=== PATIENT | female | born 1990 | race Caucasian/White ===

== ENCOUNTER 2023-08-02 14:44 | Emergency (ER) | payer BC, MEDICAID ==
[~2023-08-02] VITALS: Ht 165.1 cm; Wt 109.5 kg
[2023-08-02 15:02] VITALS: BP 137/93; PULSE 116; RESP 18; O2SAT 96
[2023-08-02 15:35] LABS: Basophils # (auto) 0 10 ^3/uL (0-0.2); Basophils % (auto) 0.4 % (0.0-2.0); Eosinophils # (auto) 0.1 10 ^3/uL (0-0.8); Eosinophils % (auto) 1.4 % (0.0-7.0); Hematocrit 43.4 % (36.0-46.0); Hemoglobin 14.4 g/dL (12.2-16.2); Lymphocytes # (auto) 2.4 10 ^3/uL (0.4-5.4); Lymphocytes % (auto) 26.3 % (10.0-50.0); Mean Corpuscular Hemoglobin 28.1 pg (28.0-32.0); Mean Corpuscular Hgb Conc. 33.2 g/dL (32.0-36.0); Mean Corpuscular Volume 84.6 fL (80.0-100.0); Monocytes # (auto) 0.5 10 ^3/uL (0-1.3); Monocytes % (auto) 5.2 % (0.0-12.0); Neutrophils % (auto) 66.7 % (37.0-80.0); Red Blood Cells 5.13 10^6/uL (4.0-5.20); Red Cell Distribution Width 14.1 % (11.8-14.3)
[2023-08-02 15:50] LABS: Alanine Aminotransferase 21 U/L (7-40); Albumin 4.7 g/dL (3.2-4.8); Alkaline Phosphatase 105 U/L (46-116); Anion Gap 8 (5-15); Aspartate Aminotransferase 22 U/L (13-40); Carbon Dioxide 26 mmol/L (20-30); Chloride 104 mmol/L (98-107); Glucose 91 mg/dL (74-106); Potassium 3.9 mmol/L (3.5-5.1); Sodium 138 mmol/L (136-145)
[2023-08-02 15:51] LABS: Bilirubin, Total 0.7 mg/dL (0.2-1.0); Total Protein 7.3 g/dL (5.7-8.2)
[2023-08-02 15:53] LABS: BUN/Creatinine Ratio 6.7 (10.0-20.0); Blood Urea Nitrogen < 5 mg/dL (9-23)
[2023-08-02 17:15] LABS: Urine Bacteria NONE SEEN /hpf (None Seen); Urine Blood 3+ /uL (Negative); Urine Clarity HAZY (Clear); Urine Color Yellow (Yellow); Urine Mucus FEW (None Seen); Urine Protein, UAD 1+ (Negative); Urine Specific Gravity 1.031 (1.001-1.035); Urine Urobilinogen Normal (Negative); Urine WBC 3 /hpf (0 - 5); Urine pH 5.5 (5.0-8.0)
[2023-08-02] MEDS ORDERED: RHO (D) IMMUNE GLOBULIN 300 MCG INJ IM ONE (19:00)
== END 2023-08-02 21:59 | disposition left against medical advice (07) ==
LOC: ER 14:44
DX: O20.9 Hemorrhage in early pregnancy, unspecified (principal); R10.2 Pelvic and perineal pain; Z3A.01 Less than 8 weeks gestation of pregnancy
CPT/HCPCS: 36415; 76801; 76817; 80053; 81001; 81025; 84702; 85025; 86850; 86900; 86901

== ENCOUNTER → 2023-10-10 | Outpatient (CLI) | payer BC, MEDICAID ==
[2023-10-10 12:43] LABS: Basophils # (auto) 0 10 ^3/uL (0-0.2); Basophils % (auto) 0.5 % (0.0-2.0); Eosinophils # (auto) 0.3 10 ^3/uL (0-0.8); Eosinophils % (auto) 3.9 % (0.0-7.0); Hematocrit 40.8 % (36.0-46.0); Hemoglobin 13.7 g/dL (12.2-16.2); Lymphocytes # (auto) 2.2 10 ^3/uL (0.4-5.4); Lymphocytes % (auto) 30.4 % (10.0-50.0); Mean Corpuscular Hemoglobin 27.9 pg (28.0-32.0); Mean Corpuscular Hgb Conc. 33.6 g/dL (32.0-36.0); Mean Corpuscular Volume 83.1 fL (80.0-100.0); Monocytes # (auto) 0.3 10 ^3/uL (0-1.3); Monocytes % (auto) 4.5 % (0.0-12.0); Neutrophils # (auto) 4.5 10 ^3/uL (1.6-8.6); Neutrophils % (auto) 60.7 % (37.0-80.0); Nucleated Red Blood Cells % 0.1 %; Red Blood Cells 4.91 10^6/uL (4.0-5.20); Red Cell Distribution Width 13.5 % (11.8-14.3); White Blood Cell 7.4 10^3/uL (4.4-10.8)
[2023-10-10 12:59] LABS: Urine Bacteria FEW /hpf (None Seen); Urine Blood 1+ /uL (Negative); Urine Clarity Clear (Clear); Urine Color Yellow (Yellow); Urine Mucus FEW (None Seen); Urine Protein, UAD TRACE (Negative); Urine Specific Gravity 1.031 (1.001-1.035); Urine Urobilinogen Normal (Negative); Urine WBC 1 /hpf (0 - 5); Urine pH 5.5 (5.0-9.0)
[2023-10-10 13:12] LABS: Erythrocyte Sedimentation Rate 11 mm/hr (0-20)
[2023-10-10 14:02] LABS: Alanine Aminotransferase 15 U/L (7-40); Albumin 4.4 g/dL (3.2-4.8); Alkaline Phosphatase 91 U/L (46-116); Anion Gap 6 (5-15); Aspartate Aminotransferase 13 U/L (13-40); BUN/Creatinine Ratio 9.7 (10.0-20.0); Blood Urea Nitrogen 7 mg/dL (9-23); Carbon Dioxide 26 mmol/L (20-30); Chloride 107 mmol/L (98-107); Glucose 84 mg/dL (74-106); LDL Cholesterol 123 mg/dL (< 100); Potassium 3.9 mmol/L (3.5-5.1); Sodium 139 mmol/L (136-145); Triglycerides 96 mg/dL (< 150)
[2023-10-10 14:03] LABS: Bilirubin, Total 0.5 mg/dL (0.2-1.0); Cholesterol 195 mg/dL (< 200); HDL Cholesterol 59 mg/dL (40-59); Total Protein 7.5 g/dL (5.7-8.2)
== END | disposition home or self-care (01) ==
LOC: LAB 12:26
PROVIDERS: ATTEND Internal Medicine
DX: R53.83 Other fatigue (principal); R63.5 Abnormal weight gain; L65.9 Nonscarring hair loss, unspecified
CPT/HCPCS: 36415; 80053; 80061; 81001; 82626; 84439; 84443; 85025; 85045; 85652

== ENCOUNTER 2024-09-18 06:42 | Inpatient (IN) | payer BC, MEDICAID ==
[~2024-09-18] VITALS: Ht 165.1 cm; Wt 119.3 kg
--- NOTE | 2024-09-18 07:09 | ED.PDOC ---
History of Present Illness HPI Comments This is a 34-year-old female who comes in with chief complaint of possible foreign body in his esophagus. The patient was eating some granola last night and then felt like something got stuck in her throat at 10:00 p.m.. The patient woke up in his now stating that she can not swallow any food but can drink some liquids. She denies any vomiting or diarrhea. The patient also denies any shortness for breath. She has has a history of esophageal foreign bodies in the past and has had esophageal dilatation as well as foreign body removal x4. She states that she has had procedures done at [facility] as well as [place]. Upon arrival, the patient does not seem to be in any significant distress. Chief Complaint: Foreign Body Time Seen by MD: 06:56 Primary Care Provider: NONE Reviewed Notes: Nurses Notes, Medications, Allergies (No allergies) Allergies: Coded Allergies: No Known Drug Allergy (Verified Allergy, Unknown, 08/02/23) Information Source: Patient Mode of Arrival: Ambulatory Severity: Moderate Timing: Hours Duration: Since onset Prehospital treatment: None Location: Esophageal foreign body Past Medical History Past Medical History (Other): Esophageal stricture Surgical History (Other): Esophageal dilatation GAMING DEPARTMENT HEAD History: No Pertinent GAMING DEPARTMENT HEAD History Family History Family History: Reviewed,noncontributory to illness, No family hx of Cancer, No family hx of DM, No family hx of Heart belle, No family hx of HTN, No family hx ofKidney belle, No family hx of Liver belle, No family hx of Lung belle, No family hx of Stroke Social History Smoker: Non-Smoker Alcohol: Denies ETOH Use Drugs: Denies Drug Use Lives In: Home Constitutional: denies: chills, diaphoresis, fatigue, fever, malaise, sweats, weakness, others EENTM: reports: others (Esophageal foreign body with difficulty swallowing); denies: blurred vision, double vision, ear bleeding, ear discharge, ear drainage, ear pain, ear ringing, eye pain, eye redness, hearing loss, mouth pain, mouth swelling, nasal discharge, nose bleeding, nose congestion, nose pain, photophobia, tearing, throat pain, throat swelling, voice changes Respiratory: denies: cough, hemoptysis, orthopnea, SOB at rest, shortness of breath, SOB with excertion, stridor, wheezing, others Cardiovascular: denies: chest pain, dizzy spells, diaphoresis, Dyspnea on exertion, edema, irregular heart beat, left arm pain, lightheadedness, palpitations, PND, syncope, others Gastrointestinal: reports: dysphagia; denies: abdomen distended, abdominal pain , blood streaked bowels, constipated, diarrhea, difficulty swallowing, hematemesis, melena, nausea, poor appetite, poor fluid intake, rectal bleeding, rectal pain, vomiting, others Genitourinary: denies: abnormal vagina bleeding, burning, dyspareunia, dysuria, flank pain, frequency, hematuria, incontinence, pain, , vagina discharge, urgency, others Neurological: denies: dizziness, fainting, headache, left sided numbness, left sided weakness, numbness, paresthesia, pre-existing deficit, right sided numbness, right sided weakness, seizure, speech problems, tingling, tremors, weakness, others Musculoskeletal: denies: back pain, gout, joint pain, joint swelling, muscle pain, muscle stiffness, neck pain, others Integumetry: denies: bruises, change in color, change in hair/nails, dryness, laceration, lesions, lumps, rash, wounds, others Allergic/Immunocompromised: denies: Difficulty Healing, Frequent Infections, Hives, Itching, others Hematologic/Lymphatic: denies: anemia, blood clots, easy bleeding, easy bruising, swollen glands, others Endocrine: denies: excessive hunger, excessive sweating, excessive thirst, excessive urination, flushing, intolerance to cold, intolerance to heat, unexplained weight gain, unexplained weight loss, others Psychiatric: denies: anxiety, bipolar disorder, depression, hopeless, panic disorder, schizophrenia, sleepless, suicidal, others Physical Exam General Appearance: Mild Distress HEENT: Normal ENT Inspection, Pharynx Normal, TMs Normal Neck: Full Range of Motion, Non-Tender, Normal, Normal Inspection Respiratory: Chest Non-Tender, Lungs Clear, No Accessory Muscle Use, No Respiratory Distress, Normal Breath Sounds Cardiovascular: No Edema, No JVD, No Murmur, No Gallop, Normal Peripheral Pulses, Regular Rate/Rhythm Breast Exam: Deferred Gastrointestinal: No Organomegaly, Non Tender, No Pulsatile Mass, Normal Bowel Sounds, Soft Genitalia: Deferred Pelvic: Deferred Rectal: Deferred Extremities: No calf tenderness, Normal capillary refill, Normal inspection, Normal range of motion, Non-tender, No pedal edema Musculoskeletal : Apperance: Normal Neurologic: Alert, 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 Was a procedure done?: No Differential Dx Considerations may include: Esophageal foreign body, generalized weakness X-Ray, Labs, Meds, VS Vital Signs Date Time Temp Pulse Resp B/P (MAP) Pulse Ox O2 Delivery O2 Flow Rate FiO2 09/18/24 08:07 97.8 102 16 142/107 (119) 97 97.8 09/18/24 08:07 102 16 97 Room Air 09/18/24 06:50 97.8 102 16 142/107 (119) 97 97.8 Lab Test 09/18/24 07:10 Range/Units White Blood Count 11.3 H 4.4-10.8 10^3/uL Red Blood Count 5.18 4.0-5.20 10^6/uL Hemoglobin 14.5 12.2-16.2 g/dL Hematocrit 42.9 36.0-46.0 % Mean Corpuscular Volume 82.9 80.0-100.0 fL Mean Corpuscular Hemoglobin 28.1 28.0-32.0 pg Mean Corpuscular Hemoglobin Concent 33.9 32.0-36.0 g/dL Red Cell Distribution Width 14.2 11.8-14.3 % Platelet Count 352 140-450 10^3/uL Mean Platelet Volume 7.0 6.9-10.8 fL Neutrophils (%) (Auto) 72.4 37.0-80.0 % Lymphocytes (%) (Auto) 19.8 10.0-50.0 % Monocytes (%) (Auto) 5.5 0.0-12.0 % Eosinophils (%) (Auto) 1.7 0.0-7.0 % Basophils (%) (Auto) 0.6 0.0-2.0 % Neutrophils # (Auto) 8.2 1.6-8.6 10 ^3/uL Lymphocytes # (Auto) 2.2 0.4-5.4 10 ^3/uL Monocytes # (Auto) 0.6 0-1.3 10 ^3/uL Eosinophils # (Auto) 0.2 0-0.8 10 ^3/uL Basophils # (Auto) 0.1 0-0.2 10 ^3/uL Nucleated Red Blood Cells 0.1 % Prothrombin Time 10.6 9.3-11.8 sec Prothrombin Time INR 1.00 0.9-1.15 Activated Partial Thromboplast Time 27.0 24.5-34.5 SEC Sodium Level 136 136-145 mmol/L Potassium Level 3.8 3.5-5.1 mmol/L Chloride Level 104 98-107 mmol/L Carbon Dioxide Level 22 20-31 mmol/L Anion Gap 10 5-15 Blood Urea Nitrogen 7 L 9-23 mg/dL Creatinine 0.79 0.550-1.02 mg/dL Glomerular Filtration Rate Calc 102 >90 mL/min BUN/Creatinine Ratio 8.9 L 10.0-20.0 Serum Glucose 95 74-106 mg/dL Calcium Level 9.8 8.7-10.4 mg/dL Total Bilirubin 0.5 0.2-1.0 mg/dL Aspartate Amino Transferase (AST) 19 13-40 U/L Alanine Aminotransferase (ALT) 25 7-40 U/L Alkaline Phosphatase 97 46-116 U/L Total Protein 7.7 5.7-8.2 g/dL Albumin 4.7 3.2-4.8 g/dL Current Medications Medications (Trade) Dose Ordered Sig/Carole Route Start Time Stop Time Status Last Admin Pantoprazole Sodium (Protonix) 40 mg ONCE ONCE IV 09/18/24 07:15 09/18/24 07:16 DC 09/18/24 07:42 IV Hep-Lock has been established We called Dr. Hawkins who is the GI on-call and she will be taking the patient for the procedure at noon today. The patient was to remain NPO We have discussed the findings with the patient and she is in agreement with the management. At this time we will continue to monitor the patient's medical status Time of 1ST Reevaluation: 07:22 Reevaluation 1ST: Unchanged Patient Education/Counseling: Diagnosis, Treatment, Prognosis Family Education/Counseling: No Family Present Departure 1 Departure Time of Disposition: 07:23 Impression: Primary Impression: Esophageal foreign body Qualified Codes: T18.108A - Unspecified foreign body in esophagus causing other injury, initial encounter Disposition: 30 STILL A PATIENT Condition: Fair Critical Care Note Critical Care Time?: No Stability Stability form required: Yes Unstable for transfer: ED Physician Assesment (Clinical assesment) Heart Score Heart Score: Heart Score Response (Comments) Value History N/A 0 EKG N/A 0 Age N/A 0 Risk Factors N/A 0 Troponin N/A 0 Total 0 LISA VOSS MD Sep 18, 2024 07:09
[2024-09-18 07:19] LABS: Basophils # (auto) 0.1 10 ^3/uL (0-0.2); Basophils % (auto) 0.6 % (0.0-2.0); Eosinophils # (auto) 0.2 10 ^3/uL (0-0.8); Eosinophils % (auto) 1.7 % (0.0-7.0); Hematocrit 42.9 % (36.0-46.0); Hemoglobin 14.5 g/dL (12.2-16.2); Lymphocytes # (auto) 2.2 10 ^3/uL (0.4-5.4); Lymphocytes % (auto) 19.8 % (10.0-50.0); Mean Corpuscular Hemoglobin 28.1 pg (28.0-32.0); Mean Corpuscular Hgb Conc. 33.9 g/dL (32.0-36.0); Mean Corpuscular Volume 82.9 fL (80.0-100.0); Monocytes # (auto) 0.6 10 ^3/uL (0-1.3); Monocytes % (auto) 5.5 % (0.0-12.0); Neutrophils # (auto) 8.2 10 ^3/uL (1.6-8.6); Neutrophils % (auto) 72.4 % (37.0-80.0); Nucleated Red Blood Cells % 0.1 %; Platelet Count (auto) 352 10^3/uL (140-450); Red Blood Cells 5.18 10^6/uL (4.0-5.20); Red Cell Distribution Width 14.2 % (11.8-14.3); White Blood Cell 11.3 10^3/uL (4.4-10.8)
[2024-09-18 07:35] LABS: Alanine Aminotransferase 25 U/L (7-40); Albumin 4.7 g/dL (3.2-4.8); Alkaline Phosphatase 97 U/L (46-116); Anion Gap 10 (5-15); Aspartate Aminotransferase 19 U/L (13-40); BUN/Creatinine Ratio 8.9 (10.0-20.0); Bilirubin, Total 0.5 mg/dL (0.2-1.0); Blood Urea Nitrogen 7 mg/dL (9-23); Calcium 9.8 mg/dL (8.7-10.4); Carbon Dioxide 22 mmol/L (20-31); Chloride 104 mmol/L (98-107); Glucose 95 mg/dL (74-106); Potassium 3.8 mmol/L (3.5-5.1); Sodium 136 mmol/L (136-145); Total Protein 7.7 g/dL (5.7-8.2)
[2024-09-18 07:37] LABS: Prothrombin Time 10.6 sec (9.3-11.8)
--- NOTE | 2024-09-18 07:39 | DVH ---
XY CHEST TWO VIEWS ROUTINE CLINICAL HISTORY: pre op COMPARISON: None TECHNIQUE: Frontal and lateral view of the chest was obtained FINDINGS: Lines and Tubes: None Lungs: No focal consolidation. Pleura: No effusion. No pneumothorax. Cardiomediastinal contours: Unremarkable Bones: No acute osseous abnormality. IMPRESSION: 1. No acute cardiopulmonary disease.
[2024-09-18] MEDS: PANTOPRAZOLE 40 MG/10 ML VIAL INJ IV ONE ×2 (07:42→15:03)
[2024-09-18] MEDS ORDERED: fentaNYL CITRATE 100 MCG/2 ML VL ONE (10:39)
[2024-09-18] MEDS ORDERED: PROPOFOL 10 MG/ML 20 ML IV ONE ×2 (10:39→12:51)
[2024-09-18 13:04] VITALS: PULSE 105; RESP 99; O2SAT 99
--- NOTE | 2024-09-18 14:17 | DVHINCON2 ---
Date of service: Sep 18, 2024 (Time of consult 11:00 a.m.) Referring Physician Dale Valenzuela Reason for Consultation Foreign body in esophagus History of Present Illness This is a 34-year-old female who comes in with chief complaint of possible foreign body in his esophagus. The patient was eating some granola last night and then felt like something got stuck in her throat at 10:00 p.m.. The patient woke up in his now stating that she can not swallow any food but can drink some liquids. She denies any vomiting or diarrhea. The patient also denies any shortness for breath. She has has a history of esophageal foreign bodies in the past and has had esophageal dilatation as well as foreign body removal x4. She states that she has had procedures done at [facility] as well as [place]. Patient states last EGD was by the gastro group at [facility]. Her biopsies were not consistent with the eosinophilic esophagitis and she has tried the elimination diet which does not help. Patient takes Pepcid 40 mg p.o. daily. Patient has a toddler at home Past Medical History Past Medical History Esophageal stricture Chronic GERD Past Surgical History EGD with dilation Allergies: Coded Allergies: No Known Drug Allergy (Verified Allergy, Unknown, 08/02/23) Vital Signs Vital Signs Date Time Temp Pulse Resp B/P (MAP) Pulse Ox O2 Delivery O2 Flow Rate FiO2 09/18/24 13:04 Room Air 0 09/18/24 13:04 105 99 99 09/18/24 08:07 97.8 142/107 (119) 97.8 Physical Exam General Appearance: Well-developed well-nourished lady no acute distress HEENT: Normal ENT Inspection, Pharynx Normal, TMs Normal Neck: Full Range of Motion, Non-Tender, Normal, Normal Inspection Respiratory: Chest Non-Tender, Lungs Clear, No Accessory Muscle Use, No Respiratory Distress, Normal Breath Sounds Cardiovascular: No Edema, No JVD, No Murmur, No Gallop, Normal Peripheral Pulses, Regular Rate/Rhythm Gastrointestinal: No Organomegaly, Non Tender, No Pulsatile Mass, Normal Bowel Sounds, Soft Extremities: No calf tenderness, Normal capillary refill, Normal inspection, Normal range of motion, Non-tender, No pedal edema Neurologic: Alert, senior it security analyst II-XII nml as Tested, No Motor Deficits, Normal Affect, Normal Mood, No Sensory Deficits Labs/Diagnostic Data Labs Test 09/18/24 07:10 Range/Units White Blood Count 11.3 H 4.4-10.8 10^3/uL Red Blood Count 5.18 4.0-5.20 10^6/uL Hemoglobin 14.5 12.2-16.2 g/dL Hematocrit 42.9 36.0-46.0 % Mean Corpuscular Volume 82.9 80.0-100.0 fL Mean Corpuscular Hemoglobin 28.1 28.0-32.0 pg Mean Corpuscular Hemoglobin Concent 33.9 32.0-36.0 g/dL Red Cell Distribution Width 14.2 11.8-14.3 % Platelet Count 352 140-450 10^3/uL Mean Platelet Volume 7.0 6.9-10.8 fL Neutrophils (%) (Auto) 72.4 37.0-80.0 % Lymphocytes (%) (Auto) 19.8 10.0-50.0 % Monocytes (%) (Auto) 5.5 0.0-12.0 % Eosinophils (%) (Auto) 1.7 0.0-7.0 % Basophils (%) (Auto) 0.6 0.0-2.0 % Neutrophils # (Auto) 8.2 1.6-8.6 10 ^3/uL Lymphocytes # (Auto) 2.2 0.4-5.4 10 ^3/uL Monocytes # (Auto) 0.6 0-1.3 10 ^3/uL Eosinophils # (Auto) 0.2 0-0.8 10 ^3/uL Basophils # (Auto) 0.1 0-0.2 10 ^3/uL Nucleated Red Blood Cells 0.1 % Prothrombin Time 10.6 9.3-11.8 sec Prothrombin Time INR 1.00 0.9-1.15 Activated Partial Thromboplast Time 27.0 24.5-34.5 SEC Sodium Level 136 136-145 mmol/L Potassium Level 3.8 3.5-5.1 mmol/L Chloride Level 104 98-107 mmol/L Carbon Dioxide Level 22 20-31 mmol/L Anion Gap 10 5-15 Blood Urea Nitrogen 7 L 9-23 mg/dL Creatinine 0.79 0.550-1.02 mg/dL Glomerular Filtration Rate Calc 102 >90 mL/min BUN/Creatinine Ratio 8.9 L 10.0-20.0 Serum Glucose 95 74-106 mg/dL Calcium Level 9.8 8.7-10.4 mg/dL Total Bilirubin 0.5 0.2-1.0 mg/dL Aspartate Amino Transferase (AST) 19 13-40 U/L Alanine Aminotransferase (ALT) 25 7-40 U/L Alkaline Phosphatase 97 46-116 U/L Total Protein 7.7 5.7-8.2 g/dL Albumin 4.7 3.2-4.8 g/dL Beta HCG, Quantitative 0.7 L 1.5-4.2 mIU/mL Chest x-ray negative Problems(with codes): (1) Esophageal stricture (2) Esophagitis (3) Hiatal hernia (4) Esophageal foreign body Plan/Recommendation Plan Patient will be kept NPO Give her IV Protonix 40 mg x 1 dose Schedule upper endoscopy with possible biopsy possible dilation possible removal of foreign body Risks of procedure including bleeding and perforation risk of consideration could OK stroke were discussed with the patient She appeared to comprehend concerned with the procedure and the patient has had this procedure multiple times in the past Plan discussed with: Patient, Other ( Ortiz and DR Valenzuela) JACKLYN GREEN MD Sep 18, 2024 14:17
--- NOTE | 2024-09-18 14:24 | DVHOP2 ---
Operative Report DATE OF OPERATION: 09/18/24 PROCEDURE: Upper Endoscopy with biopsy. PREOPERATIVE INDICATION: The patient is a 34 -year-old female undergoing endoscopy for foreign body in esophagus chronic GERD and history of esophageal stricture POSTOPERATIVE DIAGNOSES: 1. Patient had a tight proximal to mid esophageal stricture beyond which the endoscope could not be advanced, this was dilated with a Microvasive balloon from 8-9 mm 2. I was then able to advance the endoscope into the distal esophagus where there was also some narrowing and a stricture and a foreign body i.e a piece of corn like material was seen 3. This area was also dilated with a Microvasive radial expansion balloon from 8-9 mm and subsequently I was able to advance the endoscope and the foreign body into the stomach 4. Patient has a 4-5 cm sliding-type hiatal hernia with esophageal ulceration suspected underlying Barretts esophagitis from which biopsies were obtained 5. Minimal oozing and mucosal separation seen in the proximal to mid esophagus 5. Otherwise normal examination up to the 2nd and 3rd part of the duodenum PROCEDURE PERFORMED BY: Jacklyn Hawkins GI NURSE: Michelle SCOPE: Olympus videoendoscope. ASA CLASS: 2. PREOPERATIVE MEDICATIONS: Mac sedationDr. Mireles PROCEDURE IN DETAIL: After obtaining an informed consent, the patient was placed on left lateral decubitus position. The patient was then sedated with the above medications. A bite block was placed between her teeth. The endoscope was then passed through the oropharynx, into the esophagus. There was a tight esophageal stricture in the proximal to mid esophagus I could not pass the endoscope beyond this area. This this was dilated with Microvasive radial expansion balloon from 8-9 mm Subsequently I was able to advance the endoscope into the distal esophagus. There was another area of esophageal stricture and narrowing beyond which the endoscope could not be passed This was dilated again with Microvasive radial expansion balloon from 8-9 mm. There was a foreign body namely a piece of large colon that was seen in the distal esophagus. This was gently pushed into the stomach. I was able to then pass the endoscope through the pylorus up to the 2nd and 3rd part of the duodenum The endoscope was then withdrawn the 2nd and 3rd part of the duodenal in the duodenal bulb were normal. Duodenal biopsies were obtained. The pre-pyloric area and antrum showed minimal gastritis. Gastric biopsies were obtained. On retroflexion the dislodged food particles were seen in the cardia and pr oximal stomach. The endoscope was then withdrawn into the esophagus. Patient had a 4-5 cm sliding-type hiatal hernia with [id number] esophageal ulcerations and suspected underlying Alcocer's esophagitis Esophageal biopsies were obtained. There was some area of mucosal separation and oozing in the proximal to mid esophagus at the site of forced dilation. The proximal esophagus and oropharynx were unremarkable. and pylorus up to the second and third part of the duodenum. The endoscope was then withdrawn. The patient tolerated the procedure well without difficulty. COMPLICATIONS : None SPECIMENS: Duodenal biopsies Gastric biopsies Esophageal biopsies DISPOSITION: Admit for observation Stable PLAN: 1. Await for biopsy result 2. Will place pt on Protonix 80 mg IV q.12 hours 3. I will get a Gastrografin upper GI x-ray to rule out any extravasation of the contrast 4. If the upper GI x-ray is negative we can start her on ice chips and then clear liquid diet 4. Carafate suspension 1 g p.o. 4 times a day 5. Patient has been advised to maintain herself on Prilosec 40 mg p.o. twice a day and Carafate 1 g p.o. twice a day upon discharge 6. Outpatient follow up with me in 4-6 weeks to review results and discuss further management 7. Discussed with patient and JACKLYN Guaman MD Sep 18, 2024 14:24
[2024-09-18] MEDS: cefTRIAXone 2GM/50ML D5W 50 ML IV ONE (15:03)
[2024-09-18] MEDS ORDERED: MORPHINE SULFATE INJ 2 MG/ml SYRG IV PRN (15:15)
[2024-09-18] MEDS ORDERED: NITROGLYCERIN 0.4 MG SL TAB SL PRN (15:15)
[2024-09-18] MEDS ORDERED: ACETAMINOPHEN IV 1000 MG/100ML (10MG/ML) IV ONE (15:30)
[2024-09-18 16:06] VITALS: PULSE 95; RESP 19; O2SAT 100
[2024-09-18] MEDS ORDERED: ONDANSETRON HCL 4 MG/2 ML VIAL IV PRN (16:15)
[2024-09-18 16:16] VITALS: BP 123/89; PULSE 95; RESP 19; TEMP 97.6; O2SAT 100
--- NOTE | 2024-09-18 16:20 | DVHHP2 ---
Review of Systems Allergies: Coded Allergies: No Known Drug Allergy (Verified Allergy, Unknown, 08/02/23) Medications Current Medications Medications Dose Ordered Sig/Carole Route Start Time Stop Time Status Last Admin Dose Admin Nitroglycerin 0.4 mg Q5MINP PRN SL 09/18/24 15:15 Morphine Sulfate 2 mg Q30M PRN IV 09/18/24 15:15 Ondansetron HCl 4 mg Q6HPRN PRN IV 09/18/24 16:15 Exam Vital Signs Vital Signs Date Time Temp Pulse Resp B/P (MAP) Pulse Ox O2 Delivery O2 Flow Rate FiO2 09/18/24 13:04 Room Air 0 09/18/24 13:04 105 99 99 09/18/24 08:07 97.8 142/107 (119) 97.8 Labs/Xrays Labs Test 09/18/24 07:10 Range/Units White Blood Count 11.3 H 4.4-10.8 10^3/uL Red Blood Count 5.18 4.0-5.20 10^6/uL Hemoglobin 14.5 12.2-16.2 g/dL Hematocrit 42.9 36.0-46.0 % Mean Corpuscular Volume 82.9 80.0-100.0 fL Mean Corpuscular Hemoglobin 28.1 28.0-32.0 pg Mean Corpuscular Hemoglobin Concent 33.9 32.0-36.0 g/dL Red Cell Distribution Width 14.2 11.8-14.3 % Platelet Count 352 140-450 10^3/uL Mean Platelet Volume 7.0 6.9-10.8 fL Neutrophils (%) (Auto) 72.4 37.0-80.0 % Lymphocytes (%) (Auto) 19.8 10.0-50.0 % Monocytes (%) (Auto) 5.5 0.0-12.0 % Eosinophils (%) (Auto) 1.7 0.0-7.0 % Basophils (%) (Auto) 0.6 0.0-2.0 % Neutrophils # (Auto) 8.2 1.6-8.6 10 ^3/uL Lymphocytes # (Auto) 2.2 0.4-5.4 10 ^3/uL Monocytes # (Auto) 0.6 0-1.3 10 ^3/uL Eosinophils # (Auto) 0.2 0-0.8 10 ^3/uL Basophils # (Auto) 0.1 0-0.2 10 ^3/uL Nucleated Red Blood Cells 0.1 % Prothrombin Time 10.6 9.3-11.8 sec Prothrombin Time INR 1.00 0.9-1.15 Activated Partial Thromboplast Time 27.0 24.5-34.5 SEC Sodium Level 136 136-145 mmol/L Potassium Level 3.8 3.5-5.1 mmol/L Chloride Level 104 98-107 mmol/L Carbon Dioxide Level 22 20-31 mmol/L Anion Gap 10 5-15 Blood Urea Nitrogen 7 L 9-23 mg/dL Creatinine 0.79 0.550-1.02 mg/dL Glomerular Filtration Rate Calc 102 >90 mL/min BUN/Creatinine Ratio 8.9 L 10.0-20.0 Serum Glucose 95 74-106 mg/dL Calcium Level 9.8 8.7-10.4 mg/dL Total Bilirubin 0.5 0.2-1.0 mg/dL Aspartate Amino Transferase (AST) 19 13-40 U/L Alanine Aminotransferase (ALT) 25 7-40 U/L Alkaline Phosphatase 97 46-116 U/L Total Protein 7.7 5.7-8.2 g/dL Albumin 4.7 3.2-4.8 g/dL Beta HCG, Quantitative 0.7 L 1.5-4.2 mIU/mL Assessment/Plan Assessment/Plan SEE DICTATED NOTE Plan discussed with: Patient My Orders Orders - AUGUSTINA CHEN MD Procedure Category Date Status Time Admit ADMIT 09/18/24 Transmitted 15:12 Oxygen By Nasal RT 09/18/24 Transmitted Cannula 15:12 Nitroglycerin [facility] 09/18/24 In Process Sublingual (Ntrostat 15:15 Morphine Sulfate PH[facility] 09/18/24 In Process Injection 15:15 Stat Ekg For Chest [facility] 09/18/24 In Process Pain 15:12 Notify Md Of Changes [facility] 09/18/24 In Process From Base 15:12 Health Insurance Adjuster For [facility] 09/18/24 In Process 24 Hours 15:12 Emergency Dysrhythmia [facility] 09/18/24 In Process Protocol 15:12 Rhythm Strips Once [facility] 09/18/24 In Process Every Shift 15:12 Ondansetron Hcl [facility] 09/18/24 In Process (Zofran) 16:15 Date of Service: Sep 18, 2024 Billing Provider: AUGUSTINA CHEN MD Common Visit Codes: [id number] INP/OBS CARE (HIGH) AUGUSTINA CHEN MD Sep 18, 2024 16:20
[2024-09-18 16:23] VITALS: BP 123/89; PULSE 95; RESP 19; TEMP 97.6; O2SAT 100
--- NOTE | 2024-09-18 16:31 | DVHHP ---
ADMIT DATE: 09/18/2024 HISTORY OF PRESENT ILLNESS: The patient is a 34-year-old lady who came in with complaints of possible foreign body in the esophagus with difficulty swallowing. The patient denies any nausea or vomiting. No definite chest pain or shortness of breath. Review of rest systems otherwise currently negative. PAST MEDICAL HISTORY: Significant for chronic GERD and esophageal stricture. MEDICATIONS: She takes Pepcid. ALLERGIES: No known drug allergies. SOCIAL HISTORY: Denies smoking and alcohol. Lives with family. FAMILY HISTORY: Negative. PHYSICAL EXAMINATION: GENERAL: The patient is awake and alert. VITAL SIGNS: Temperature of 97.8, pulse 105 per minute, blood pressure 142/107. SHEENT: Unremarkable. There is no JVD. No pedal edema. LUNGS: Equal bilaterally. No adventitious sounds. CARDIOVASCULAR: S1 and S2 are regular without murmurs. ABDOMEN: Soft. There is no organomegaly. NEUROLOGICAL: Nonfocal. MUSCULOSKELETAL: Normal. ASSESSMENT AND PLAN: * Esophageal stricture with foreign body, status post dilatation. The patient will be placed on IV Pepcid as well as a Gastrografin study will be obtained. She will be kept NPO for now. * History of GERD. * Obesity. MD CHRIS Thayer/ORQUIDEA TID: [id number] RECEIPT: [id number]
[2024-09-18] MEDS: D5W/SOD CHL 0.45%/KCL 20MEQ 1,000 ML IV SCH (16:38)
[2024-09-18] MEDS: ONDANSETRON HCL 4 MG/2 ML VIAL IV PRN (16:38)
[2024-09-18] MEDS: MORPHINE SULFATE INJ 2 MG/ml SYRG IV ONE (16:39)
[2024-09-18 19:07] LABS: Urine Amorphous Crystal FEW /hpf (None Seen); Urine Bacteria FEW /hpf (None Seen); Urine Blood Negative /uL (Negative); Urine Budding Yeast OCCASIONAL /hpf (None Seen); Urine Clarity Turbid (Clear); Urine Color Yellow (Yellow); Urine Mucus FEW (None Seen); Urine Protein, UAD Negative (Negative); Urine Specific Gravity 1.023 (1.001-1.035); Urine Squamous Epithelial Cell FEW /hpf (<5); Urine Urobilinogen Normal (Negative); Urine WBC < 1 /HPF (0-5)
[2024-09-18 20:00] VITALS: PULSE 96; RESP 16; O2SAT 100
[2024-09-18 21:00] VITALS: BP 122/73; PULSE 96; RESP 16; TEMP 98.8; O2SAT 99
[2024-09-18] MEDS: MORPHINE SULFATE INJ 2 MG/ml SYRG IV PRN (21:29)
[2024-09-19 00:56] VITALS: BP 105/73; PULSE 88; RESP 16; TEMP 98.3; O2SAT 96
[2024-09-19 05:00] VITALS: BP 120/88; PULSE 81; RESP 16; TEMP 98.6; O2SAT 100
[2024-09-19 07:11] LABS: Basophils # (auto) 0 10 ^3/uL (0-0.2); Basophils % (auto) 0.5 % (0.0-2.0); Eosinophils # (auto) 0.2 10 ^3/uL (0-0.8); Eosinophils % (auto) 3.2 % (0.0-7.0); Hematocrit 42.8 % (36.0-46.0); Hemoglobin 14.3 g/dL (12.2-16.2); Lymphocytes # (auto) 1.9 10 ^3/uL (0.4-5.4); Lymphocytes % (auto) 31.3 % (10.0-50.0); Mean Corpuscular Hemoglobin 28.4 pg (28.0-32.0); Mean Corpuscular Hgb Conc. 33.5 g/dL (32.0-36.0); Mean Corpuscular Volume 84.8 fL (80.0-100.0); Monocytes # (auto) 0.4 10 ^3/uL (0-1.3); Monocytes % (auto) 5.9 % (0.0-12.0); Neutrophils # (auto) 3.7 10 ^3/uL (1.6-8.6); Neutrophils % (auto) 59.1 % (37.0-80.0); Nucleated Red Blood Cells % 0.1 %; Platelet Count (auto) 263 10^3/uL (140-450); Red Blood Cells 5.04 10^6/uL (4.0-5.20); Red Cell Distribution Width 14.2 % (11.8-14.3); White Blood Cell 6.2 10^3/uL (4.4-10.8)
[2024-09-19 07:23] LABS: Potassium 3.8 mmol/L (3.5-5.1); Sodium 137 mmol/L (136-145)
--- NOTE | 2024-09-19 07:23 | DVH ---
EXAM: XR Chest, 1 View CLINICAL INDICATION: Post-Op procedure TECHNIQUE: Frontal view of the chest. COMPARISON: None FINDINGS: LUNGS AND PLEURAL SPACES: Unremarkable. No consolidation. No pneumothorax. HEART: Unremarkable. No cardiomegaly. MEDIASTINUM: Unremarkable. Normal mediastinal contour. BONES/JOINTS: Unremarkable. No acute fracture. OTHER FINDINGS: . None. IMPRESSION: No acute cardiopulmonary process.
[2024-09-19 07:24] LABS: Anion Gap 10 (5-15); Calcium 9.8 mg/dL (8.7-10.4)
[2024-09-19 07:29] LABS: Glucose 80 mg/dL (74-106)
[2024-09-19 07:33] LABS: BUN/Creatinine Ratio 7.5 (10.0-20.0); Blood Urea Nitrogen < 5 mg/dL (9-23); Carbon Dioxide 19 mmol/L (20-31); Chloride 108 mmol/L (98-107)
[2024-09-19] MEDS: GASTROGRAFIN 30 ML SOL ONE (08:45)
[2024-09-19 09:00] VITALS: BP 115/83; PULSE 82; RESP 16; TEMP 98.2; O2SAT 96
[2024-09-19] MEDS ORDERED: PANTOPRAZOLE 40 MG/10 ML VIAL INJ IV SCH (10:00)
[2024-09-19] MEDS: PANTOPRAZOLE 40 MG/10 ML VIAL INJ IV SCH (10:04)
--- NOTE | 2024-09-19 10:35 | DVH ---
Procedure: CT CHEST WITH CONTRAST Reason for study/Clinical History: R/O ESOPHAGEAL TEAR Comparison Study: None available at time of dictation. Exam Date: 09/19/2024 09:32 AM Radiation Dose Information: CT Dose: CTDI volume is 22.87 mGy. Dose-length product is 1936.01 mGy*cm TECHNIQUE: CT of the neck and chest were performed without intravenous contrast. Enteric contrast was given. Coronal and sagittal reformatted images are provided. FINDINGS: Neck: No evidence of subcutaneous emphysema. The aerodigestive tract is patent. The deep soft tissue s of the neck fat planes are maintained without effacement. No large fluid collection. Salivary gland s are unremarkable. No cervical lymphadenopathy. The bones are unremarkable. Prevertebral soft tissu es unremarkable. Mediastinum: Heart size is normal. There is no pericardial effusion. Normal caliber thoracic aorta an d main pulmonary artery. The esophagus is unremarkable. The distal esophagus contains enteric contras t without evidence of wall thickening. There is a paraesophageal hernia just cranial to the GE junct ion. No extraluminal contrast. There is no pneumomediastinum. No lymphadenopathy. Lungs: No focal consolidation, pleural effusion or significant pneumothorax. No suspicious pulmonary nodule or mass. Central airways: Patent. Musculoskeletal: No acute osseous abnormality. Upper abdomen: Limited portions of the upper abdomen are unremarkable. IMPRESSION: 1. No evidence of acute abnormality in the neck or chest. No pneumomediastinum or extraluminal enteri c contrast to suggest esophageal perforation. Consider esophagram for additional evaluation if not al ready performed. All CT scans at this medical facility are performed using dose modulation techniques as appropriate t o a performed exam including the following: Automated exposure control was utilized; adjustment of th e MA and/or KV according to patient size; and use of iterative reconstruction technique.
--- NOTE | 2024-09-19 11:32 | DVHDS2 ---
Discharge Summary Date of Admission Sep 18, 2024 at 15:12 Date of Discharge: Sep 19, 2024 Labs/Diagnostic Data: Laboratory Results Test 09/19/24 04:48 09/18/24 17:45 09/18/24 07:10 White Blood Count 6.2 10^3/uL (4.4-10.8) Red Blood Count 5.04 10^6/uL (4.0-5.20) Hemoglobin 14.3 g/dL (12.2-16.2) Hematocrit 42.8 % (36.0-46.0) Mean Corpuscular Volume 84.8 fL (80.0-100.0) Mean Corpuscular Hemoglobin 28.4 pg (28.0-32.0) Mean Corpuscular Hemoglobin Concent 33.5 g/dL (32.0-36.0) Red Cell Distribution Width 14.2 % (11.8-14.3) Platelet Count 263 10^3/uL (140-450) Mean Platelet Volume 7.5 fL (6.9-10.8) Neutrophils (%) (Auto) 59.1 % (37.0-80.0) Lymphocytes (%) (Auto) 31.3 % (10.0-50.0) Monocytes (%) (Auto) 5.9 % (0.0-12.0) Eosinophils (%) (Auto) 3.2 % (0.0-7.0) Basophils (%) (Auto) 0.5 % (0.0-2.0) Neutrophils # (Auto) 3.7 10 ^3/uL (1.6-8.6) Lymphocytes # (Auto) 1.9 10 ^3/uL (0.4-5.4) Monocytes # (Auto) 0.4 10 ^3/uL (0-1.3) Eosinophils # (Auto) 0.2 10 ^3/uL (0-0.8) Basophils # (Auto) 0 10 ^3/uL (0-0.2) Nucleated Red Blood Cells 0.1 % Sodium Level 137 mmol/L (136-145) Potassium Level 3.8 mmol/L (3.5-5.1) Chloride Level 108 mmol/L (98-107) Carbon Dioxide Level 19 mmol/L (20-31) Anion Gap 10 (5-15) Blood Urea Nitrogen < 5 mg/dL (9-23) Creatinine 0.67 mg/dL (0.550-1.02) Glomerular Filtration Rate Calc 119 mL/min (>90) BUN/Creatinine Ratio 7.5 (10.0-20.0) Serum Glucose 80 mg/dL (74-106) Calcium Level 9.8 mg/dL (8.7-10.4) Urine Color Yellow (Yellow) Urine Clarity Turbid (Clear) Urine pH 5.0 (5.0-9.0) Urine Specific [place] 1.023 (1.001-1.035) Urine Protein Negative (Negative) Urine Ketones 1+ (Negative) Urine Blood Negative /uL (Negative) Urine Nitrite Negative (Negative) Urine Bilirubin Negative (Negative) Urine Urobilinogen Normal mg/dL (Negative) Urine Leukocyte Esterase Negative /uL (Negative) Urine RBC <1 /hpf (0 - 4) Urine Microscopic WBC < 1 /HPF (0-5) Urine Squamous Epithelial Cells Few /hpf (<5) Urine Amorphous Crystals Few /hpf (None Seen) Urine Bacteria Few /hpf (None Seen) Urine Mucus Few (None Seen) Urine Yeast (Budding) Occasional /hpf (None Urine Glucose Normal mg/dL (Normal) Prothrombin Time 10.6 sec (9.3-11.8) Prothrombin Time INR 1.00 (0.9-1.15) Activated Partial Thromboplast Time 27.0 SEC (24.5-34.5) Total Bilirubin 0.5 mg/dL (0.2-1.0) Aspartate Amino Transferase (AST) 19 U/L (13-40) Alanine Aminotransferase (ALT) 25 U/L (7-40) Alkaline Phosphatase 97 U/L (46-116) Total Protein 7.7 g/dL (5.7-8.2) Albumin 4.7 g/dL (3.2-4.8) Beta HCG, Quantitative 0.7 mIU/mL (1.5-4.2) Other Laboratory Tests 09/19/24 04:48 Brief Hx & Hospital Course: see dictated note Condition at Discharge: Good Final Diagnosis/Problems List gerd Discharge Disposition: Home Discharge Instruct/Medications Diet: Regular Diet comment: pureed Activity: No Restrictions, As Tolerated Follow Up/Referral: fu with gi clinic in 2 wks Medications: script to pharmacy Discharge Statement: "Patient was advised to return to the ER or call 911 if any headaches, dizziness, shortness of breath, chest pain, abdominal pain, bleeding, fevers, or worsening of medical condition. Patient was counseled about treatment plan, medications, possible side effects, patientverbalized understanding. All questions were answered to the best of my ability. This discharge took greater then 30 minutes in planning, reviewing documentation, counseling the patient, and discussing with other team members." ASSESSMENT ASSESSMENT Assessment gerd Date of Service: Sep 19, 2024 Billing Provider: AUGUSTINA CHEN MD Common Visit Codes: 57769-CSW/OBS DISCH DAY >30min AUGUSTINA CHEN MD Sep 19, 2024 11:32
[2024-09-19] MEDS ORDERED: PANT40TA2 PO (11:34)
[2024-09-19] MEDS ORDERED: ZOFR4T PO (11:34)
[2024-09-19] MEDS ORDERED: SUCR1SUS26 PO (11:34)
[2024-09-19] MEDS: SUCRALFATE 1 GM/10 ML ORAL SUSP PO SCH (11:35)
--- NOTE | 2024-09-19 11:52 | DVHDS ---
DATE OF DISCHARGE: 09/19/2024 HISTORY OF PRESENT ILLNESS: The patient is a 34-year-old lady who was admitted after she underwent endoscopy for foreign body removal and was found to have esophageal stricture and underwent dilatation. HOSPITAL COURSE: The patient was seen by Dr. Hawkins. The patient had a CT of the chest that showed no evidence of acute abnormality or extraluminal enteric contrast in the esophagus. The patient will be discharged once she tolerates the oral diet, to be on Carafate 1 gram q.i.d. for 30 days, Protonix 40 mg b.i.d. and Zofran p.r.n. for nausea. She will follow up with Dr. Hawkins in 2 weeks. FINAL DIAGNOSES: * Esophageal stricture status post dilatation. * Gastroesophageal reflux disease. * Morbid obesity. Time spent in discharge plan and review of plan with the patient and nursing was 38 minutes. MD CHRIS Thayer/MIA TID: [id number] RECEIPT: [id number]
[2024-09-19 13:00] VITALS: BP 132/91; PULSE 79; RESP 18; TEMP 98; O2SAT 97
--- NOTE | 2024-09-19 13:21 | DVHPN2 ---
Progress Note - Dictate Date Seen: Sep 19, 2024 Medical Necessity Reason Pt with a Central, PICC or Fol: No Subjective No new complaints, patient is seen at bedside Upper GI X ray could not be done due to equipment dysfunction CT of the chest was ordered with oral contrast which does not show any extravasation of contrast Patient was started on a clear liquid diet advance to full liquid which she is tolerating well Also be dose of Carafate 1 g p.o. which helped her upper GI symptoms vital signs Vital Sign Date Time Temp Pulse Resp B/P (MAP) Pulse Ox O2 Delivery O2 Flow Rate FiO2 09/19/24 09:00 98.2 82 16 115/83 (94) 96 98.2 09/19/24 07:45 Room Air* 0 21 Total Intake and Output 09/18/24 09/18/24 09/19/24 15:00 23:00 07:00 Intake Total 100 ml 0 ml Balance 100 ml 0 ml medications Current Medications Medications Dose Ordered Sig/Carole Route Start Time Stop Time Status Last Admin Dose Admin Nitroglycerin 0.4 mg Q5MINP PRN SL 09/18/24 15:15 Morphine Sulfate 2 mg Q30M PRN IV 09/18/24 15:15 Potassium Chloride/Dextrose/ Sod Cl 1,000 ml @ 100 mls/hr Q10H IV 09/18/24 16:30 09/19/24 02:30 100 MLS/HR Morphine Sulfate 1 mg Q4HP PRN IV 09/18/24 16:30 09/18/24 21:29 1 MG Ondansetron HCl 4 mg Q4HPRN PRN IV 09/18/24 16:30 09/19/24 05:08 4 MG Pantoprazole Sodium 80 mg BID IV 09/19/24 10:00 09/19/24 10:04 80 MG Sucralfate 1 gm QID@0600,1130,1700,2200 PO 09/19/24 11:30 09/19/24 11:35 1 GM objective General Appearance: Well-developed well-nourished lady no acute distress HEENT: Normal ENT Inspection, Pharynx Normal, TMs Normal Neck: Full Range of Motion, Non-Tender, Normal, Normal Inspection Respiratory: Chest Non-Tender, Lungs Clear, No Accessory Muscle Use, No Respiratory Distress, Normal Breath Sounds Cardiovascular: No Edema, No JVD, No Murmur, No Gallop, Normal Peripheral Pulses, Regular Rate/Rhythm Gastrointestinal: No Organomegaly, Non Tender, No Pulsatile Mass, Normal Bowel Sounds, Soft Extremities: No calf tenderness, Normal capillary refill, Normal inspection, Normal range of motion, Non-tender, No pedal edema Neurologic: Alert, product marketing director II-XII nml as Tested, No Motor Deficits, Normal Affect, Normal Mood, No Sensory Deficits laboratory and microbiology Laboratory Tests 09/19/24 04:48 Test 09/19/24 04:48 Range/Units Serum Glucose 80 74-106 mg/dL Problems(with codes): (1) Esophageal stricture (2) Hiatal hernia (3) Esophagitis (4) Esophageal foreign body Prognosis Plan Advance to soft mechanical and pureed type of diet Dietary restrictions were discussed Protonix 40 mg p.o. b.i.d. Carafate suspension 1 g p.o. 4 times a day Avoid aspirin NSAIDs smoking alcohol Outpatient follow up with me in two weeks for ongoing managed and of chronic severe GERD Plan discussed with: Patient, Other (Nurse) JACKLYN GREEN MD Sep 19, 2024 13:21
== END 2024-09-19 14:28 | disposition home or self-care (01) | DRG 394 ==
LOC: ER 06:42 → OVERFLOW 15:12 → WEST WING 16:02
PROVIDERS: ADMIT Internal Medicine; ATTEND Internal Medicine
PROC: 0DB68ZX Excision of Stomach, Via Natural or Artificial Opening Endoscopic, Diagnostic (ICD-10-PCS; 2024-09-18)
PROC: 0DB58ZX Excision of Esophagus, Via Natural or Artificial Opening Endoscopic, Diagnostic (ICD-10-PCS; 2024-09-18)
PROC: 0D728ZZ Dilation of Middle Esophagus, Via Natural or Artificial Opening Endoscopic (ICD-10-PCS; 2024-09-18)
PROC: 0DB98ZX Excision of Duodenum, Via Natural or Artificial Opening Endoscopic, Diagnostic (ICD-10-PCS; principal; 2024-09-18 12:41)
DX: T18.128A Food in esophagus causing other injury, initial encounter (principal); K22.10 Ulcer of esophagus without bleeding; K22.2 Esophageal obstruction; K21.9 Gastro-esophageal reflux disease without esophagitis; K44.9 Diaphragmatic hernia without obstruction or gangrene; E66.01 Morbid (severe) obesity due to excess calories; Z79.899 Other long term (current) drug therapy; Z68.38 Body mass index [BMI] 38.0-38.9, adult; W44.F3XA Food entering into or through a natural orifice, initial encounter; W45.8XXA Other foreign body or object entering through skin, initial encounter; Y93.89 Activity, other specified; Y92.89 Other specified places as the place of occurrence of the external cause; Y99.8 Other external cause status
CPT/HCPCS: 36415; 71045; 71046; 71260; 80048; 80053; 81001; 84702; 85025; 85610; 85730; 96365; 96375; G0378; J2405; J2470; J2704